=== PATIENT | female | born 1935 | race Caucasian/White ===

== ENCOUNTER 2016-11-13 12:27 | Emergency (ER) | payer MEDICARE, OTHER ==
[~2016-11-13] VITALS: Ht 162.6 cm; Wt 82.0 kg
[~2016-11-13 12:27] MED LIST: AMLO10 PO; ASPI81TA82 PO; COZA50TA PO; METO25 PO; METO50TA PO; MULTCAP2 PO; TIMO0.5S4 LEFT EYE; TRAV0.00 EACH EYE
[2016-11-13 12:29] VITALS: BP 202/92; PULSE 71; RESP 16; TEMP 98.2; O2SAT 98
--- NOTE | 2016-11-13 14:05 | PD ---
HPI Chief Complaint: Abnormal Results Time Seen by Provider: 13:50 Travel History International Travel<30 days: No Contact w/Intl Traveler<30days: No Traveled to known affect area: No History of Present Illness HPI 81-year-old female presents for evaluation of hypertension. She felt like her blood pressure might be elevated this morning and so she checked her blood pressure 216/100. She reports that she does not check her blood pressure on a very regular basis but 1-2 times a month she sees her chiropractor and is typically systolic 140s. She is currently on a blood pressure regimen including Cozaar 100 mg, 50 mg metoprolol in the mornings. She takes 25 mg metoprolol at night. Last year she was started on 10 mg of amlodipine however this was discontinued at some point by her primary care physician. She is denying any headache, blurred vision, chest pain, shortness of breath, nausea, vomiting. She does have occasional palpitations, particularly at night, over the past year. No other complaints. 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) Cardiovascular Problems: Yes Diminished Hearing: No Hypertension: Yes Pneumonia: Yes Past Surgical History Eye Surgery: Yes (CATARACT ELIER EYES) Oral Surgery: Yes (wisdom teeth) Social History Alcohol Use: Yes (WINE DAILY) Tobacco Use: No Substance Use: No Allergies-Medications (Allergen,Severity, Reaction): Coded Allergies: No Known Allergies (Unverified , 11/13/16) Reported Meds & Prescriptions Reported Meds & Active Scripts Active Reported Multi-Day (Multiple Vitamins W/ Iron) 1 Tab Tab Travatan Z Opth Drops (Travoprost) 0.004 % Soln 1 Drop EACH EYE HS Cozaar (Losartan Potassium) 100 Mg Tab 100 Mg PO DAILY Metoprolol Tartrate 50 Mg Tab 50 Mg PO DAILY Metoprolol Tartrate 25 Mg Tab 25 Mg PO HS Review of Systems Except as stated in HPI: all other systems reviewed are Neg Physical Exam Narrative GENERAL: Well-developed well-nourished female in no acute distress SKIN: Warm and dry. HEAD: Atraumatic. Normocephalic. EYES: Pupils equal and round. No scleral icterus. No injection or drainage. ENT: No nasal bleeding or discharge. Mucous membranes pink and moist. NECK: Trachea midline. No JVD. CARDIOVASCULAR: Regular rate and rhythm. No murmur appreciated. RESPIRATORY: No accessory muscle use. Clear to auscultation. Breath sounds equal bilaterally. GASTROINTESTINAL: Abdomen soft, non-tender, nondistended. Hepatic and splenic margins not palpable. MUSCULOSKELETAL: No obvious deformities. No edema NEUROLOGICAL: Awake and alert. No obvious cranial nerve deficits. Motor grossly within normal limits. Normal speech. PSYCHIATRIC: Appropriate mood and affect; insight and judgment normal. Data Data Last Documented VS Vital Signs Date Time Temp Pulse Resp B/P Pulse Ox O2 Delivery O2 Flow Rate FiO2 11/13/16 14:15 58 18 100 Room Air 11/13/16 14:15 184/91 11/13/16 12:29 98.2 Orders Complete Blood Count With Diff (11/13/16 14:01) Basic Metabolic Panel (Bmp) (11/13/16 14:01) Magnesium (Mg) (11/13/16 14:01) Electrocardiogram (11/13/16 ) Amlodipine (Norvasc) (11/13/16 14:15) Labs Laboratory Tests Test 11/13/16 14:20 White Blood Count 5.1 TH/MM3 Red Blood Count 4.66 MIL/MM3 Hemoglobin 14.9 GM/DL Hematocrit 44.4 % Mean Corpuscular Volume 95.2 FL Mean Corpuscular Hemoglobin 32.0 PG Mean Corpuscular Hemoglobin 33.7 % Concent Red Cell Distribution Width 13.0 % Platelet Count 179 TH/MM3 Mean Platelet Volume 8.8 FL Neutrophils (%) (Auto) 63.2 % Lymphocytes (%) (Auto) 19.9 % Monocytes (%) (Auto) 14.9 % Eosinophils (%) (Auto) 1.3 % Basophils (%) (Auto) 0.7 % Neutrophils # (Auto) 3.2 TH/MM3 Lymphocytes # (Auto) 1.0 TH/MM3 Monocytes # (Auto) 0.8 TH/MM3 Eosinophils # (Auto) 0.1 TH/MM3 Basophils # (Auto) 0.0 TH/MM3 CBC Comment DIFF FINAL Differential Comment Sodium Level 143 MEQ/L Potassium Level 3.8 MEQ/L Chloride Level 107 MEQ/L Carbon Dioxide Level 29.5 MEQ/L Anion Gap 7 MEQ/L Blood Urea Nitrogen 23 MG/DL Creatinine 0.72 MG/DL Estimat Glomerular Filtration 77 ML/MIN Rate Random Glucose 92 MG/DL Calcium Level 8.8 MG/DL Magnesium Level 2.1 MG/DL MDM Medical Decision Making Medical Screen Exam Complete: Yes Emergency Medical Condition: Yes Medical Record Reviewed: Yes Interpretation(s) EKG sinus bradycardia Differential Diagnosis Essential hypertension, hypertensive urgency, hypertensive emergency, atrial fibrillation, PVCs, PACs Narrative Course 81-year-old female presents for evaluation of elevated blood pressure. She does endorse occasional palpitations over the past year as well. Plan is for basic lab work and EKG. She will be given a low-dose amlodipine. Lab work is unremarkable. EKG is unchanged from previous EKG last year. The plan will be to discharge the patient with a prescription for 5 mg amlodipine daily. She is encouraged to follow up closely with her primary care physician in the check her blood pressure and a regular basis. She may benefit from outpatient Holter monitoring for further evaluation of these intermittent palpitations. She is stable for discharge. Diagnosis Primary Impression: Hypertension, uncontrolled Additional Instructions: Medication as prescribed. Monitor blood pressure and a regular basis and keep internal of these readings. Follow-up with primary care physician, help desk technician. Return for any emergent medical conditions. Med/Other Pt SpecificInfo: Prescription(s) given Scripts Amlodipine 5 Mg Tab5 Mg PO DAILY #30 TAB Ref 0 Prov:Alka Sullivan DO 11/13/16 Disposition: 01 DISCHARGE HOME Condition: Stable Matti Mera Nov 13, 2016 14:05
[2016-11-13 14:15] VITALS: BP 184/91; PULSE 59; RESP 17; O2SAT 99
[2016-11-13] MEDS ORDERED: amLODIPine BESYLATE 5 MG TAB PO ONE (14:15)
[2016-11-13] MEDS ORDERED: MULTTAB77 (14:19)
[2016-11-13] MEDS ORDERED: METO50TA PO (14:19)
[2016-11-13] MEDS ORDERED: METO25TA3 PO (14:19)
[2016-11-13] MEDS ORDERED: COZA100T PO (14:19)
[2016-11-13] MEDS ORDERED: TRAV0.00 EACH EYE (14:19)
[2016-11-13 14:43] LABS: AUTOMATED NEUTROPHIL # 3.2 TH/MM3 (1.8-7.7); BASOPHIL % 0.7 % (0.0-2.0); EOSINOPHIL # 0.1 TH/MM3 (0-0.4); EOSINOPHIL % 1.3 % (0.0-4.0); HEMATOCRIT 44.4 % (35.0-46.0); HEMO FLAGS DIFF FINAL; LYMPH % 19.9 % (9.0-44.0); MEAN CELL VOLUME 95.2 FL (80.0-100.0); MEAN CORPUSCULAR HGB CONC 33.7 % (32.0-36.0); MONO % 14.9 % (0.0-8.0); NEUT % 63.2 % (16.0-70.0); PLATELET COUNT 179 TH/MM3 (150-450); RED BLOOD COUNT 4.66 MIL/MM3 (4.00-5.30); WHITE BLOOD COUNT 5.1 TH/MM3 (4.0-11.0)
[2016-11-13 15:03] LABS: BICARBONATE 29.5 MEQ/L (21.0-32.0); MAGNESIUM 2.1 MG/DL (1.5-2.5); POTASSIUM 3.8 MEQ/L (3.5-5.1)
[2016-11-13] MEDS ORDERED: AMLO5TAB2 PO (15:09)
[2016-11-13 15:20] VITALS: BP 168/77; TEMP 97.7
--- NOTE | 2016-11-13 16:48 | EKG ---
Date Performed: 11/13/2016 Time Performed: 14:27:11 PTAGE: 81 years EKG: SINUS BRADYCARDIA LEFT AXIS DEVIATION RIGHT BUNDLE BRANCH BLOCK ABNORMAL ECG PREVIOUS TRACING : 12/11/2015 14.08 No significant change from previous tracing noted. DOCTOR: Blaze Thorpe Interpretating Date/Time 11/13/2016 16:46:43
== END 2016-11-13 15:20 | disposition home or self-care (01) ==
LOC: NEPE 12:27
DX: I10 Essential (primary) hypertension (principal); R94.31 Abnormal electrocardiogram [ECG] [EKG]
CPT/HCPCS: 80048; 83735; 85025; 93005; 99283

== ENCOUNTER 2018-05-21 16:24 | Observation (INO) ==
[2018-05-21] MEDS ORDERED: Aspirin 325 MG Tablet PO ONE (17:02)
[2018-05-21 17:28] LABS: Baso % (Auto) 0.8 % (0.0-2.0); Eos # (Auto) 0.1 th/mm3 (0.0-0.4); Eos % (Auto) 2.8 % (0.0-4.0); Hematocrit 42.7 % (35.0-46.0); Lymph # (Auto) 0.9 th/mm3 (1.0-4.8); Lymph % (Auto) 18.6 % (9.0-44.0); Mean Corpuscular HGB Conc 35.1 % (32.0-36.0); Mean Corpuscular Hemoglobin 33.6 pg (27.0-34.0); Mean Corpuscular Volume 95.7 fL (80.0-100.0); Mean Platelet Volume 8.1 fL (7.0-11.0); Mono # (Auto) 0.8 th/mm3 (0.0-0.9); Mono % (Auto) 16.9 % (0.0-8.0); Neut # (Auto) 2.9 th/mm3 (1.8-7.7); Neut % (Auto) 60.9 % (16.0-70.0); Platelet Count 159 th/mm3 (150-450); Red Blood Count 4.46 mil/mm3 (4.00-5.30); Red Cell Distribution Width 13.2 % (11.6-17.2); White Blood Count 4.7 th/mm3 (4.0-11.0)
[2018-05-21 17:38] LABS: Activated Partial Thrombo Time 25.5 sec (23.4-31.7); Prothrombin Time 10.3 sec (9.8-11.6)
--- NOTE | 2018-05-21 17:42 | XR ---
EXAM DATE: 05/21/2018 5:37 PM EST AGE/SEX: 83 years / Female INDICATIONS: Chest pain. CLINICAL DATA: This is the patient's initial encounter. Patient reports that signs and symptoms have been present for 1 day and indicates a pain score of 6/10. MEDICAL/SURGICAL HISTORY: Hypertension. None. COMPARISON: No prior exams available for comparison. FINDINGS: A single AP view of the chest demonstrates the lungs to be symmetrically aerated without evidence of mass, infiltrate or effusion. The cardiomediastinal contours are unremarkable. Osseous structures a re intact. CONCLUSION: No acute intrathoracic disease. Electronically signed by: Brett Walter MD Board Certified Radiologist 05/21/2018 5:40 PM EST
[2018-05-21 18:09] LABS: Alanine Aminotransferase 25 U/L (10-53); Albumin 3.6 g/dL (3.4-5.0); Anion Gap 8 meq/L (5-15); Aspartate Aminotransferase 30 U/L (15-37); Blood Urea Nitrogen 22 mg/dL (7-18); Calcium 9.2 mg/dL (8.5-10.1); Carbon Dioxide 27.7 meq/L (21.0-32.0); Chloride 107 meq/L (98-107); Glomerular Filtration Rate 65 mL/min (>89); Glucose,Random 104 mg/dL (74-106); Magnesium 2.1 mg/dL (1.5-2.5); Potassium 4.1 meq/L (3.5-5.1); Sodium 143 meq/L (136-145)
[2018-05-21 18:13] LABS: Alkaline Phosphatase 65 U/L (45-117); Creatine Kinase 141 U/L (26-192); Total Protein 6.8 g/dL (6.4-8.2)
[2018-05-21 18:26] LABS: Creatine Kinase MB 1.9 ng/mL (0.5-3.6)
[2018-05-21] MEDS ORDERED: Acetaminophen 500 MG Tablet PO PRN (19:11)
--- NOTE | 2018-05-21 19:41 | ED ---
HPI General Chief Complaint: Chest Pain Stated Complaint: chest pain / BP issue Time Seen by Provider: 05/21/18 16:50 Source: patient and family Mode of arrival: ambulatory Limitations: no limitations History of Present Illness HPI narrative: 83-year-old female with a history of hypertension that presents to the ED for evaluation of chest pain. Per patient she has had chest pain that radiates to her left axilla sometimes gets worse when she lifts her left arm since today. No history of injury. No urinary or bowel movement issues. No cough or runny nose. States that she follows with a monument letterer but currently her monument letterer is retired and she is supposed to follow with Dr. Burrell. Per patient she has not had a stress test in "years ". She states that she has been taking her medications as prescribed. She has not taken anything for the pain today. Per patient he thought it would go away and he has not. Per patient the pain is 6 out of 10 when he comes but currently she states that the pain is minimal and is 1 out of 10. Sometimes he does get more significant when she moves her left arm. She denies any recent travel or 10 on a cruise during . She denies flying or any long car rides. She denies any surgeries. Denies any abdominal pain. She denies any nausea or vomiting. No tooth pain. Takes no blood thinners. Related Data Home Medications Medication Instructions Recorded Confirmed amlodipine 5 mg PO DAILY 05/21/18 05/21/18 losartan [Cozaar] 100 mg PO DAILY 05/21/18 05/21/18 metoprolol tartrate 50 mg PO BID 05/21/18 05/21/18 Allergies Allergy/AdvReac Type Severity Reaction Status Date / Time No Known Allergies Allergy Verified 05/21/18 17:03 Review of Systems ROS: all other systems reviewed are negative [facility] Medical History Medical History Glaucoma (Acute) HBP (high blood pressure) (Acute) Social History Social History Substance History: No History of Abuse Second Hand Smoke Exposure: No Smoking Status: Former smoker How Often Do You Have a Drink Containing Alcohol: 2 to 3 times a week Recent Travel in [facility] within the Last 8 Weeks: No Recent Out of Country Travel within the Last 8 Weeks: No Immunization History Tetanus Immunization: >5 Years Exam Narrative Exam Narrative: GENERAL: Well appearing SKIN: Focused skin assessment warm/dry. HEAD: Atraumatic. Normocephalic. EYES: Pupils equal and round. No scleral icterus. No injection or drainage. ENT: No nasal bleeding or discharge. Mucous membranes pink and moist. Tongue is midline. No uvula deviation. NECK: Trachea midline. No JVD. CARDIOVASCULAR: Regular rate and rhythm. No murmur appreciated. RESPIRATORY: No accessory muscle use. Clear to auscultation. Breath sounds equal bilaterally. GASTROINTESTINAL: Abdomen soft, non-tender, nondistended. Hepatic and splenic margins not palpable. MUSCULOSKELETAL: No obvious deformities. No clubbing. No cyanosis. No edema. Full range of motion of the upper and lower extremities bilaterally. 2+ pulses bilaterally. NEUROLOGICAL: Awake and alert. No obvious cranial nerve deficits. Motor grossly within normal limits. Normal speech. PSYCHIATRIC: Appropriate mood and affect; insight and judgment normal. Course Initial Documented Vital Signs Temperature 98.3 F 05/21/18 16:35 Pulse Rate 81 05/21/18 16:35 Respiratory Rate 20 05/21/18 16:35 Blood Pressure 180/80 H 05/21/18 16:35 Pulse Oximetry 95 05/21/18 16:35 Last Documented Vital Signs Temperature 98.0 F 05/22/18 08:17 Pulse Rate 68 05/22/18 08:17 Respiratory Rate 16 05/22/18 08:17 Blood Pressure 127/65 05/22/18 08:17 Pulse Oximetry 95 05/22/18 08:17 Medical Decision Making JIM Attestation JIM supervised visit: Yes Attestation: I, Dr. Soriano, have reviewed the advance practice practitioner's documentation and am in agreement, met with the patient face to face, made the diagnosis, and the medical decision making was done by me. *My assessment and Findings: Chest pain. Patient has risk factors and will benefit from the chest pain center for rule out protocol. Pain is very atypical however she does have risk factors and she is 83 years old. MDM Narrative Medical decision making narrative: 83-year-old female who presents to the ED for evaluation of chest pain. Patient was properly examined was found to have signs and symptoms consistent with appears to be chest pain. Labs and imaging ordered. Aspirin given. Labs and imaging were essentially unremarkable. My attending evaluate the patient himself and recommends admission to the chest pain center. This was discussed in length by my attending Dr. Soriano as well as myself with the patient and she agreed to admission to the chest pain center. Patient was admitted chest pain center by me. Medical Screen Exam Complete: Yes Emergency Medical Condition: Yes Differential Diagnosis Differential Diagnosis: Chest pain versus ACS versus atypical chest pain versus an STEMI Medical Records Medical records reviewed: Yes I reviewed the patient's medical records. Lab Data Lab results reviewed: Yes I reviewed the patient's lab results. Result diagrams: 05/21/18 17:17 05/21/18 17:17 Lab Results 05/21/18 05/21/18 05/21/18 Range/Units 17:17 17:17 17:17 WBC 4.7 (4.0-11.0) th/mm3 RBC 4.46 (4.00-5.30) mil/mm3 Hgb 15.0 (11.6-15.3) gm/dL Hct 42.7 (35.0-46.0) % MCV 95.7 (80.0-100.0) fL MCH 33.6 (27.0-34.0) pg MCHC 35.1 (32.0-36.0) % RDW 13.2 (11.6-17.2) % Plt Count 159 (150-450) th/mm3 MPV 8.1 (7.0-11.0) fL Neut % (Auto) 60.9 (16.0-70.0) % Lymph % (Auto) 18.6 (9.0-44.0) % [place] % (Auto) 16.9 H (0.0-8.0) % Eos % (Auto) 2.8 (0.0-4.0) % Baso % (Auto) 0.8 (0.0-2.0) % Neut # (Auto) 2.9 (1.8-7.7) th/mm3 Lymph # (Auto) 0.9 L (1.0-4.8) th/mm3 [place] # (Auto) 0.8 (0.0-0.9) th/mm3 Eos # (Auto) 0.1 (0.0-0.4) th/mm3 Baso # (Auto) 0.0 (0.0-0.2) th/mm3 WBC Differential . Differential Comment Auto diff final PT 10.3 (9.8-11.6) sec INR 1.0 Ratio APTT 25.5 (23.4-31.7) sec Sodium 143 (136-145) meq/L Potassium 4.1 (3.5-5.1) meq/L Chloride 107 (98-107) meq/L Carbon Dioxide 27.7 (21.0-32.0) meq/L Anion Gap 8 (5-15) meq/L BUN 22 H (7-18) mg/dL Creatinine 0.83 (0.50-1.00) mg/dL Estimated GFR 65 L (>89) mL/min Random Glucose 104 (74-106) mg/dL Calcium 9.2 (8.5-10.1) mg/dL Magnesium 2.1 (1.5-2.5) mg/dL Total Bilirubin 1.2 H (0.2-1.0) mg/dL AST 30 (15-37) U/L ALT 25 (10-53) U/L Alkaline Phosphatase 65 (45-117) U/L Total Creatine Kinase 141 (26-192) U/L CK-MB (CK-2) 1.9 (0.5-3.6) ng/mL Troponin I Less than 0.02 L (0.02-0.05) ng/mL Total Protein 6.8 (6.4-8.2) g/dL Albumin 3.6 (3.4-5.0) g/dL 05/21/18 05/21/18 Range/Units 20:14 23:26 WBC (4.0-11.0) th/mm3 RBC (4.00-5.30) mil/mm3 Hgb (11.6-15.3) gm/dL Hct (35.0-46.0) % MCV (80.0-100.0) fL MCH (27.0-34.0) pg MCHC (32.0-36.0) % RDW (11.6-17.2) % Plt Count (150-450) th/mm3 MPV (7.0-11.0) fL Neut % (Auto) (16.0-70.0) % Lymph % (Auto) (9.0-44.0) % [place] % (Auto) (0.0-8.0) % Eos % (Auto) (0.0-4.0) % Baso % (Auto) (0.0-2.0) % Neut # (Auto) (1.8-7.7) th/mm3 Lymph # (Auto) (1.0-4.8) th/mm3 [place] # (Auto) (0.0-0.9) th/mm3 Eos # (Auto) (0.0-0.4) th/mm3 Baso # (Auto) (0.0-0.2) th/mm3 WBC Differential Differential Comment PT (9.8-11.6) sec INR Ratio APTT (23.4-31.7) sec Sodium (136-145) meq/L Potassium (3.5-5.1) meq/L Chloride (98-107) meq/L Carbon Dioxide (21.0-32.0) meq/L Anion Gap (5-15) meq/L BUN (7-18) mg/dL Creatinine (0.50-1.00) mg/dL Estimated GFR (>89) mL/min Random Glucose (74-106) mg/dL Calcium (8.5-10.1) mg/dL Magnesium (1.5-2.5) mg/dL Total Bilirubin (0.2-1.0) mg/dL AST (15-37) U/L ALT (10-53) U/L Alkaline Phosphatase (45-117) U/L Total Creatine Kinase 127 133 (26-192) U/L CK-MB (CK-2) (0.5-3.6) ng/mL Troponin I Less than 0.02 L Less than 0.02 L (0.02-0.05) ng/mL Total Protein (6.4-8.2) g/dL Albumin (3.4-5.0) g/dL Imaging Data Attestation: I personally reviewed and interpreted this imaging study as follows : Radiologist's impression: Chest X-Ray 05/21/18 17:03 CONCLUSION: No acute intrathoracic disease. ECG Data Attestation: I personally reviewed and interpreted this ECG as follows: Interpretation: EKG shows sinus rhythm with no sign of acute ischemia and arrhythmia read by me and attending. Discharge Plan Discharge Disposition Patient Disposition: ED Admit(ED Internal Use Only) Discharge Order Discharge Orders: ED Use Only Admit Order (Routine); Ordered 05/21/18 Ordered By: Rodrigo Bridges Discharge Details Diagnosis: Chest pain, rule out acute myocardial infarction Physicians Team ED Provider: Ted Soriano ED Midlevel Provider: Rodrigo Bridges Primary Care Provider: Robin Brown Attending Provider: Terrell Gonzalez Status ED Status: Left Department Discharge Information Discharge Date/Time: 05/21/18 20:40
[2018-05-21 21:01] LABS: Creatine Kinase 127 U/L (26-192)
[2018-05-21 23:51] LABS: Creatine Kinase 133 U/L (26-192)
[2018-05-22 08:17] VITALS: RESP 16
--- NOTE | 2018-05-22 08:21 | ECG ---
Date Performed: 05/21/2018 Time Performed: 16:50:08 PTAGE: 83 years EKG: Sinus rhythm MARKED LEFT AXIS DEVIATION RIGHT BUNDLE BRANCH BLOCK ABNORMAL ECG Since the PREVIOUS TRACING , no significant change noted PREVIOUS TRACIN11/13/16 DOCTOR: Deborah Hernandez Interpretating Date/Time 05/22/2018 08:21:02
--- NOTE | 2018-05-22 08:22 | ECG ---
Date Performed: 05/21/2018 Time Performed: 20:12:43 PTAGE: 83 years EKG: Sinus rhythm BORDERLINE LEFT AXIS DEVIATION LOW QRS VOLTAGE IN PRECORDIAL LEADS RIGHT BUNDLE BRANCH BLOCK ABNORMA L ECG Since the PREVIOUS TRACING , no significant change noted PREVIOUS TRACIN11/13/2016 14.27 DOCTOR: Deborah Hernandez Interpretating Date/Time 05/22/2018 08:21:12
--- NOTE | 2018-05-22 08:28 | P.HPCA ---
History of Present Illness Primary Care Physician: Robin Brown Chief Complaint: Chest pain History of Present Illness: 83 year old female with history of GERD and hypertension presents to ER for further evaluation of nonexertional chest pain. Onset yesterday morning. Location left anterior chest. Radiation to left axilla. Characterized as sharp. Duration seconds. Mild to moderate in intensity. No associated symptoms of nausea, vomiting, diaphorases, or dyspnea. Occasional certain movements of left shoulder would bring on discomfort. No relieving factors. Endorses similar intermittent pain over the last few months. No recent cardiac testing. 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 Burrell. No recent illness, cough, fever, or injury. NO current discomfort. Past cardiac testing 12/13/15 Lexiscan-unremarkable myocardial perfusion study. Social history Known hypertension. No known CAD, hyperlipidemia, or diabetes. Lifelong nonsmoker. No alcohol. - Diagnosis (1) Atypical chest pain (2) Hypertension Review of Systems All other systems reviewed negative except as stated in HPI PMFSH - History History Provided By: Patient - Medical History Medical History: Medical History (Last Reviewed 05/21/18 @ 19:39 by TAMMY Huynh) Glaucoma HBP (high blood pressure) - Surgical History Surgical History: Surgical History (Last Updated 05/22/18 @ 09:10 by AGUSTIN Oneal) H/O bilateral cataract extraction Hx of cholecystectomy - Tobacco History Second Hand Smoke Exposure: No Tobacco Use In Past 30 Days: No Smoking Status: Former smoker - Alcohol History How Often Do You Have a Drink Containing Alcohol: 2 to 3 times a week - Substance Use History Substance History: No History of Abuse - Travel History Recent Travel in the [place] Within the Last 8 Weeks: No Recent Travel Out of the Country Within the Last 8 Weeks: No - Immunization History Tetanus Immunization: >5 Years Medications and Allergies Active Medications: Active Medications Acetaminophen (Tylenol) 500 mg PO Q4H PRN PRN Reason: HEADACHE Hydrocodone Bitart/Acetaminophen ([place] 7.5/325) 1 tab PO Q4H PRN PRN Reason: PAIN SCALE 1 TO 7 Last Admin: 05/21/18 23:38 Dose: 1 tab Sodium Chloride (Ns Flush) 2 ml IV.FLUSH BID EDISON Sodium Chloride (Ns Flush) 2 ml IV.FLUSH PRN PRN PRN Reason: FLUSH AFTER USING IV ACCESS Allergies Allergy/AdvReac Type Severity Reaction Status Date / Time No Known Allergies Allergy Verified 05/21/18 17:03 Home Medications Medication Instructions Recorded Confirmed Type amlodipine 5 mg PO DAILY 05/21/18 05/21/18 History losartan [Cozaar] 100 mg PO DAILY 05/21/18 05/21/18 History metoprolol tartrate 50 mg PO BID 05/21/18 05/21/18 History Exam Vital signs: Vital Signs 05/21/18 16:35 05/21/18 16:37 05/21/18 17:03 Temperature 98.3 F 98.3 F 98.1 F Pulse Rate 81 71 76 Respiratory Rate 20 16 18 Blood Pressure 180/80 H 179/85 H 178/81 H Pulse Oximetry 95 98 97 05/21/18 17:37 05/21/18 18:06 05/21/18 19:26 Temperature 98.3 F 98 F Pulse Rate 62 67 Respiratory Rate 20 17 18 Blood Pressure 149/68 H 147/67 H Pulse Oximetry 96 05/21/18 23:51 05/21/18 23:53 05/22/18 00:01 Temperature 97.8 F Pulse Rate 64 58 L Respiratory Rate 20 Blood Pressure 139/67 Pulse Oximetry 97 97 05/22/18 04:00 05/22/18 08:17 Temperature 98.4 F 98.0 F Pulse Rate 68 68 Respiratory Rate 20 16 Blood Pressure 121/68 127/65 Pulse Oximetry 97 95 Intake & Output 05/21/18 05/22/18 05/22/18 18:59 06:59 18:59 Intake Total 60 / 60 Balance 60 / 60 Weight 83.915 kg 81.2 kg Intake: Oral 60 / 60 Other: # Voids 2 Date of Last Bowel Movement 05/22/18 Narrative: GENERAL: Alert WN, WD, NAD, pleasant, elderly female HEAD: NC, AT EYES: Sclera clear, conjunctiva without injection, pupils equal and round ENT: Mucous membranes pink and moist NECK: Supple, no masses, trachea midline CV: RRR, without murmur, rub, gallop, no JVD. Chest wall nontender to palpation. RESP: Clear lungs throughout bilateral, no crackles, wheeze, rhonchi, symmetrical chest rise, nonlabored, able to speak in full sentences ABD: Soft, NT, ND, no masses, positive bowel tones EXT: Pulses +2x4, no dependent edema MS: Normal tone x4 extremities, nontender, no obvious deformities, full range of motion, no reproducible left shoulder/cervical pain with passive ROM NEURO: Motor strength 5/5 PSYCH: A+O x3, pleasant affect, appropriate speech, mood, insight and judgment SKIN: Normal turgor, normal texture, no lesions, no rashes Results 05/21/18 17:17 05/21/18 17:17 Cardiac Enzymes 05/21/18 05/21/18 05/21/18 Range/Units 17:17 20:14 23:26 AST 30 (15-37) U/L CK-MB (CK-2) 1.9 (0.5-3.6) ng/mL Troponin I Less than 0.02 L Less than 0.02 L Less than 0.02 L (0.02-0.05) ng/mL Coagulation 05/21/18 Range/Units 17:17 PT 10.3 (9.8-11.6) sec APTT 25.5 (23.4-31.7) sec CBC 05/21/18 Range/Units 17:17 WBC 4.7 (4.0-11.0) th/mm3 RBC 4.46 (4.00-5.30) mil/mm3 Hgb 15.0 (11.6-15.3) gm/dL Hct 42.7 (35.0-46.0) % Plt Count 159 (150-450) th/mm3 Neut # (Auto) 2.9 (1.8-7.7) th/mm3 Lymph # (Auto) 0.9 L (1.0-4.8) th/mm3 Beadle # (Auto) 0.8 (0.0-0.9) th/mm3 Eos # (Auto) 0.1 (0.0-0.4) th/mm3 Baso # (Auto) 0.0 (0.0-0.2) th/mm3 Comprehensive Metabolic Panel 05/21/18 Range/Units 17:17 Sodium 143 (136-145) meq/L Potassium 4.1 (3.5-5.1) meq/L Chloride 107 (98-107) meq/L Carbon Dioxide 27.7 (21.0-32.0) meq/L BUN 22 H (7-18) mg/dL Creatinine 0.83 (0.50-1.00) mg/dL Calcium 9.2 (8.5-10.1) mg/dL AST 30 (15-37) U/L ALT 25 (10-53) U/L Alkaline Phosphatase 65 (45-117) U/L Total Protein 6.8 (6.4-8.2) g/dL Albumin 3.6 (3.4-5.0) g/dL Intake and Output 05/21/18 05/22/18 05/22/18 22:59 06:59 14:59 Intake Total 60 / 60 Balance 60 / 60 Intake: Oral 60 / 60 Other: # Voids 2 Date of Last Bowel Movement 05/22/18 Weight 83.915 kg 81.2 kg - Imaging and Cardiology Imaging: Impressions Chest X-Ray 05/21/18 17:03 CONCLUSION: No acute intrathoracic disease. EKG interpretations - EKG EKG results cardiology: sinus rhythm (right bundle branch block) Caprini VTE Risk Assessment Caprini VTE Risk Assessment: Moderate/High Risk (score >= 2) Caprini Risk Assessment Model: Point Value = 1 Point Value = 2 Point Value = 3 Point Value = 5 Age 41-60 Minor surgery BMI > 25 kg/m2 Swollen legs Varicose veins or History of unexplained or recurrent spontaneous Oral contraceptives or hormone replacement Sepsis (< 1 month) Serious lung disease, including pneumonia (< 1 month) Abnormal pulmonary function Acute myocardial infarction Congestive heart failure (< 1 month) History of inflammatory bowel disease Medical patient at bed rest Age 61-74 Arthroscopic surgery Major open surgery (> 45 min) Laparoscopic surgery (> 45 min) Malignancy Confined to bed (> 72 hours) Immobilizing plaster cast Central venous access Age >= 75 History of VTE Family history of VTE Factor V Leiden Prothrombin [id number] Lupus anticoagulant Anticardiolipin antibodies Elevated serum homocysteine Heparin-induced thrombocytopenia Other congenital or acquired thrombophilia Stroke (< 1 month) Elective arthroplasty Hip, pelvis, or leg fracture Acute spinal cord injury (< 1 month) Prophylaxis Regimen: Total Risk Factor Score Risk Level Prophylaxis Regimen 0-1 Low Early ambulation 2 Moderate Order ONE of the following: *Sequential Compression Device (SCD) *Heparin 5000 units SQ BID 3-4 Higher Order ONE of the following medications: *Heparin 5000 units SQ TID *Enoxaparin/Lovenox 40 mg SQ daily (WT < 150 kg, CrCl > 30 mL/min) *Enoxaparin/Lovenox 30 mg SQ daily (WT < 150 kg, CrCl > 10-29 mL/min) *Enoxaparin/Lovenox 30 mg SQ BID (WT < 150 kg, CrCl > 30 mL/min) AND/OR *Sequential Compression Device (SCD) 5 or more Highest Order ONE of the following medications: *Heparin 5000 units SQ TID (Preferred with Epidurals) *Enoxaparin/Lovenox 40 mg SQ daily (WT < 150 kg, CrCl > 30 mL/min) *Enoxaparin/Lovenox 30 mg SQ daily (WT < 150 kg, CrCl > 10-29 mL/min) *Enoxaparin/Lovenox 30 mg SQ BID (WT < 150 kg, CrCl > 30 mL/min) AND *Sequential Compression Device (SCD) Assessment and Plan - Assessment (1) Atypical chest pain Code(s): R07.89 - Other chest pain Status: Acute Plan: Chest pain center. ACS 3 sets of EKGs and cardiac enzymes. Seen and evaluated by Dr. Deborah Hernandez. Seen with Christian this morning. If unremarkable, plans are to discharge home with follow-up with primary care provider and professor of latin american studies, Dr. Burrell. (2) Hypertension Code(s): I10 - Essential (primary) hypertension Status: Chronic Plan: Continue amlodipine, losartan, and metoprolol. H&P: Quality - VTE Deep Vein Thrombosis/Pulmonary Embolism Present on Admission: No (2) Hypertension Qualifiers: Hypertension type: unspecified Qualified Code(s): I10 - Essential (primary) hypertension
[2018-05-22] MEDS ORDERED: Metoprolol Tartrate 50 MG Tablet PO SCH (09:00)
[2018-05-22] MEDS ORDERED: amLODIPine 5 MG Tablet PO SCH (09:00)
[2018-05-22] MEDS ORDERED: Regadenoson Inj 0.4 MG/5 ML Syringe IV.PUSH ONE (10:52)
[2018-05-22 12:26] VITALS: BP 155/66; PULSE 58; TEMP 98.1; O2SAT 99
--- NOTE | 2018-05-22 12:52 | NM ---
EXAM DATE: 05/22/2018 12:06 PM EST AGE/SEX: 83 years / Female INDICATIONS:Angina. . Chest pain radiating to the left arm. CLINICAL DATA: This is the patient's initial encounter. Patient reports that signs and symptoms have been present for 1 day and indicates a pain score of 6/10. MEDICAL/SURGICAL HISTORY: Hypertension. None. COMPARISON: [facility], MYOCARDIAL PERF PHARM SPECT, 12/13/2015. . DOSE: 8.5 mCi Tc 99m Myoview at rest 26.8 mCi [id number] at stress 0.4 mg Lexiscan STRESS SYMPTOMS: None. EJECTION FRACTION: 60 % TECHNIQUE: The patient underwent pharmacologic stress with infusion of prescribed dose. Continuous ECG tracing was monitored during stress. Gated SPECT imaging was performed after stress and conventi onal SPECT imaging was performed at rest. The examination was performed on a SPECT/CT scanner, both attenuation and non-corrected datasets were reviewed. FINDINGS: Distribution: The maximum perfused segment at stress is in the anterior wall. Perfusion Study: There is a small fixed defect involving the cardiac apex suggesting LAD infarct. N o reversible defect is noted to suggest ischemia. Gated Study: The ejection fraction is calculated at 60%. RISK CATEGORY: Low (<1% Annual Mortality Rate) CONCLUSION: 1. 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 2. No reversible defect is noted to suggest ischemia. 3. No focal wall motion abnormality. Electronically signed by: Tapan Morales MD Board Certified Radiologist 05/22/2018 12:50 PM EST
--- NOTE | 2018-05-22 18:03 | ECG ---
Date Performed: 05/21/2018 Time Performed: 23:09:40 PTAGE: 83 years EKG: Sinus rhythm BORDERLINE LEFT AXIS DEVIATION RIGHT BUNDLE BRANCH BLOCK ABNORMAL ECG Since PREVIOUS TRACING , no significant change noted PREVIOUS TRACIN05/21/2018 20.12 DOCTOR: Deborah Hernandez Interpretating Date/Time 05/22/2018 18:02:07
--- NOTE | 2018-05-22 18:04 | TR ---
Date Performed: 05/22/2018 Time Performed: 10:58:22 DOCTOR: Deborah Hernandez DRUG LIST: CLINICAL HISTORY: REASON FOR TEST: REASON FOR ENDING: OBSERVATION: CONCLUSION: Lexiscan stress test was performed under standard four minute protocol. Radionuclid e was injected one minute prior to ending the test. No electrocardiographic abormalities were present to suggest ischemia. Nuclear imaging and interpretation are pending. COMMENTS: Lexiscan stress test was performed under standard four minute protocol. Radionuclide was injected one minute prior to ending the test. No electrocardiographic abormalities were present t o suggest ischemia. Nuclear imaging and interpretation are pending.
== END 2018-05-22 15:30 | disposition home or self-care (01) ==
LOC: NEPC 16:24 → NEDA 16:24 → NEPFCDU 20:33
PROVIDERS: ADMIT Internal Medicine Cardiovascular Disease; ATTEND Internal Medicine Cardiovascular Disease
CPT/HCPCS: 71010; 71045; 78452; 80053; 82550; 82552; 83735; 84484; 85025; 85610; 85730; 93005; 93017; 99285; A9502; G0378; J2785; Q9969